=== PATIENT | male | born 1985 | race Asian ===

== ENCOUNTER 2024-04-16 09:32 | Emergency (ER) | payer SELFPAY ==
[~2024-04-16] VITALS: Ht 162.6 cm; Wt 74.0 kg
[2024-04-16 09:35] VITALS: O2SAT 99
[2024-04-16] MEDS: KETOROLAC 30MG/ML VIAL IM ONE (11:12)
[2024-04-16 11:19] VITALS: BP 122/60; PULSE 93; RESP 18; TEMP 36.78072; O2SAT 99
== END 2024-04-16 11:20 | disposition home or self-care (01) ==
LOC: ER 09:32
DX: M25.521 Pain in right elbow (principal)
CPT/HCPCS: 99283; 73080; 96372; J1885